=== PATIENT | female | born 1975 | race Caucasian/White ===

== ENCOUNTER 2017-02-26 06:45 | Inpatient (IN) ==
[2017-02-21 15:43] LABS: Basophils % 0.6 % (0.0-0.8); Eosinophils # 0.1 10*3/uL (0.0-0.87); Eosinophils % 1.1 % (0.00-10.9); Hematocrit 40.3 VOL% (35.7-47.0); Hemoglobin 13.8 GM/DL (12.0-16.0); Immature Granulocytes % 0.1 %; Immature Granulocytes Absolute 0.01 #; Lymphocytes % 42.1 % (21.3-54.2); Mean Corpuscular HGB Conc 34.2 GM/DL (32-36); Mean Corpuscular Hemoglobin 31 PG (27-34); Mean Corpuscular Volume 89.8 FL (87-102); Mean Platelet Volume 12.2 FL (9.6-12.0); Monocytes # 0.9 10*3/uL (0.11-0.8); Monocytes % 12.2 % (1.7-12.7); Neutrophils # 3.1 10*3/uL (1.4-7.4); Neutrophils % 43.9 % (38.7-73.9); Platelet Count 258 T/CUMM (130-400); Red Blood Count 4.49 MC/CUMM (3.8-5.5); Red Cell Distribution Width 12.9 % (9.3-17.3); White Blood Count 7.1 T/CUMM (4-12)
--- NOTE | 2017-02-21 15:44 | XRay Report ---
Exam: XR chest 2V Indication: Preop Comparison study: None Findings: The heart, mediastinum, and bony structures are within normal limits. There is no focal consolidation, pneumothorax or pleural effusion identified. Impression: No acute cardiopulmonary process. PROCEDURE INTERPRETED AT [facility] DEPARTMENT OF RADIOLOGY Final Report Signed by: Sanjay Delgado
[2017-02-21 16:06] LABS: Apearance,Urine Slightly Hazy (Clear); Bilirubin,Urine Negative (Negative); Blood, Urine Negative (Negative); Glucose,Urine (UA) Negative (Negative); Ketones,Urine Negative (Negative); Nitrite,Urine Negative (Negative); Protein,Urine Negative; Urine Color Yellow (Yellow); Urine Specific Gravity 1.006 (1.001-1.035); Urine Urobilinogen < 2.0 EU/DL (0.2-1.0); WBC,Urine <1 /HPF (0-6)
[2017-02-21 16:10] LABS: Alanine Aminotransferase 21 U/L (13-56); Albumin 4.3 G/DL (3.4-5.0); Alkaline Phosphatase 74 U/L (45-117); Aspartate Amino Transferase 14 U/L (0-37); Bilirubin,Total < 0.39 MG/DL (0.2-1.0); Blood Urea Nitrogen 9 MG/DL (7-18); Calcium 9.3 MG/DL (8.5-10.1); Cholesterol 160 MG/DL (50-200); Glucose 82 MG/DL (74-106); HDL Cholesterol 59 MG/DL (40-60); Osmolality,Calculated 278.3 MOS/KG (273-304); Potassium 3.8 MMOL/L (3.5-5.1); Risk Ratio 2.71; Sodium 141 MMOL/L (136-145); Triglycerides 113 MG/DL (2-150); VLDL CHOLESTEROL 22.6 MG/DL
[2017-02-21 23:15] LABS: HIV Antigen/Antibody Result Nonreactive (Nonreactive)
--- NOTE | 2017-02-22 04:47 | EKG Report ---
Stationary ECG Study [facility] Test Date: 02/21/2017 3:18:11 PM Pat Name: LOGAN PHILIPPE Department: Room: Gender: F Relationship Manager: JULIET BARON : 1975 Requested by: Lynne Baron Order Number: [id number] Reading MD: PIEDAD DUONG Intervals Hardesty Rate: 63 P: 58 VT: 139 QRS: 88 QRSD: 80 T: 73 QT: 387 QTc: 394 Interpretive Statements SINUS RHYTHM INTERPRETATION BASED ON A DEFAULT AGE OF 40 YEARS Electronically Signed On 02-21-17 17:00:11 CDT by PIEDAD DUONG [email or web address]
[~2017-02-26 06:45] MED LIST: AMPICILLIN/SULBACTAM 3,000 MG VIAL ONE; AMPICILLIN/SULBACTAM 3,000 MG in SODIUM CHLORIDE 0.9% 100 ML IV ONE; SODIUM CHLORIDE 0.9% 100 ML IV ONE
[2017-02-26] MEDS ORDERED: LACTATED RINGERS 1,000 ML IV SCH (07:30)
[2017-02-26] MEDS ORDERED: LORazepam 1 MG TABLET PO ONE (07:33)
[2017-02-26] MEDS ORDERED: FAMOTIDINE 20 MG TABLET PO ONE (07:33)
[2017-02-26] MEDS ORDERED: MICROFIBRILLAR COLLAGEN POWDER 1 GM CAN TOP ONE (09:00)
--- NOTE | 2017-02-26 09:18 | History and Physical Update ---
History and Physical Update - History and Physical H&P was reviewed, the patient examined and there: are no changes in the patients condition since last H&P was completed.
[2017-02-26 11:21] LABS: Apearance,Urine CLEAR (Clear); Bilirubin,Urine Negative (Negative); Blood, Urine Negative (Negative); Glucose,Urine (UA) Negative (Negative); Ketones,Urine Negative (Negative); Nitrite,Urine Negative (Negative); Protein,Urine Negative; RBC,Urine <1 /HPF (0-4); Urine Color Straw (Yellow); Urine Specific Gravity 1.005 (1.001-1.035); Urine Urobilinogen < 2.0 EU/DL (0.2-1.0); WBC,Urine <1 /HPF (0-6)
--- NOTE | 2017-02-26 11:22 | Operative Note ---
Date of procedure: 02/26/17 Procedure: Preoperative diagnosis: [] Dysfunctional uterine bleeding, uterine fibroids Postoperative diagnosis: Same Anesthesia: General. endotracheal anesthesia Estimated blood loss: [] Less than 150 cc Surgeon: Dr. Wylie Findings: [] 8 cm fundal fibroid, ovarian cyst Procedure: TAD and BSO The risks benefits and indications and alternatives the procedure were reviewed with the patient and informed consent was obtained. The patient was taken to the operating room with IV running and a Bueno catheter in place. Patient was placed in supine position, given general anesthesia, prepped and draped in the usual sterile fashion. An abdominal incision was made approximately 2 cm above the symphysis pubis and extended sharply to the rectus fascia. The fascia was then excised bilaterally with the curved Linares scissors. And the muscles of the anterior abdominal wall were in the midline by sharp and blunt dissection. Peritoneum was grasped between 2 pickups, elevated and entered sharply with the scalpel. The pelvis was examined with the findings noted above. A abdominal retractor was placed into the incision and the bowel packed away with moist laparotomy sponges. [] A tenaculum was placed on the cornea and used for retraction. The round ligaments on both sides were clamped, transected and suture ligated with 0 Vicryl the anterior leaf of the broad ligament was incised along the bladder was reflection to the midline from both sides. The bladder was then gently dissected off the lower uterine segment and the cervix with a sponge stick. The infundibulopelvic ligaments on both sides were then doubly clamped, transected and suture ligated with 0 Vicryl. Hemostasis was visualized. The uterine arteries were skeletonized bilaterally, clamped with Jenny clamps, transected and suture ligated with 0 Vicryl and, hemostasis was assured. The uterosacral ligament were clamped on both sides, transected, and suture ligated in a similar fashion the cervix and uterus were amputated with cautery. The vaginal cuff angles were closed with [id number] stitches of 0 Vicryl and were transfixed to the ipsilateral cardinal and uterosacral ligaments. The remainder of the vaginal cuff was closed with a series of interrupted 0 Vicryl [id number] sutures hemostasis was assured. The ureters were identified bilaterally were well within normal limits the pelvis was irrigated copiously with warm normal saline. All laparotomy sponges and instruments were removed from the abdomen. The fascia was closed with running 0 Vicryl, and hemostasis was assured the skin was closed with lenora. Sponges, lap, needle and instrument counts were correct -2. The patient was extubated in the operating room was taken to the PAC unit, awake and in stable condition.. Surgeon / Physician: Lynne Wylie Results - Labs CBC & BMP: 02/21/17 15:34 02/21/17 15:34 Discharge Plan - Discharge Medications No Action Sertraline [Zoloft] 50 mg PO DAILY Norethindrone [Kary-Be] 0.35 mg PO DAILY Folic Acid/Multivit-Min/Lutein [Centrum Silver Chew Tab] 1 tablet PO DAILY Chlorpheniramine/Phenylephrine [Ed-A-Hist 4 mg-10 mg Tablet] 1 each PO BEDTIME PRN PRN Reason: Sinus Symptoms - Follow Up or Referral - Forms/Instructions
[2017-02-26] MEDS ORDERED: BISACODYL 10 MG SUPP RECTAL PRN (11:23)
[2017-02-26] MEDS ORDERED: IBUPROFEN 800 MG TABLET PO PRN (11:23)
[2017-02-26] MEDS ORDERED: BENZOCAINE/MENTHOL LOZENGE 18/BOX PO PRN (11:23)
[2017-02-26] MEDS ORDERED: ACETAMINOPHEN 325 MG TABLET PO PRN (11:23)
[2017-02-26] MEDS ORDERED: PROPOFOL 200 MG/20 ML VIAL IV ONE (11:54)
[2017-02-26] MEDS ORDERED: MIDAZOLAM 2 MG/2 ML VIAL ONE (11:55)
[2017-02-26] MEDS ORDERED: SEVOFLURANE 1 UNIT/15 MINUTE INH ONE (11:55)
[2017-02-26] MEDS ORDERED: ePHEDrine 50 MG/ML AMP ONE (11:56)
[2017-02-26] MEDS ORDERED: NEOSTIGMINE 10 MG/10 ML VIAL ONE (11:56)
[2017-02-26] MEDS ORDERED: ACETAMINOPHEN 1,000 MG/100 ML VIAL IV ONE (11:56)
[2017-02-26] MEDS ORDERED: GLYCOPYRROLATE 0.4 MG/2 ML VIAL ONE (11:56)
[2017-02-26] MEDS ORDERED: KETOROLAC 30 MG/1 ML VIAL ONE (11:56)
[2017-02-26] MEDS ORDERED: ONDANSETRON 4 MG/2 ML VIAL ONE (11:56)
[2017-02-26] MEDS ORDERED: ROCURONIUM 100 MG/10 ML VIAL IV ONE (11:56)
--- NOTE | 2017-02-26 12:00 | Anesthesia Post-Op ---
Anesthesia Post OP - Post Ansesthetic Evaluation Patient seen in post op: Yes Resp: within normal limits CV: within normal limits Mental: within normal limits Temp: within normal limits [id number]-[id number]-[id number]: within normal limits Nausea and Vomiting: within normal limits Pain: within normal limits
[2017-02-26] MEDS ORDERED: MEPERIDINE 25 MG/1 ML VIAL IV PRN (13:49)
[2017-02-26] MEDS: ONDANSETRON 4 MG/2 ML VIAL IV PRN (15:14)
[2017-02-26] MEDS: LACTATED RINGERS 1,000 ML IV SCH (17:49)
[2017-02-27] MEDS: ONDANSETRON 4 MG/2 ML VIAL IV PRN (01:00)
[2017-02-27] MEDS: LACTATED RINGERS 1,000 ML IV SCH ×2 (02:45→06:43)
[2017-02-27 06:33] LABS: Basophils % 0.2 % (0.0-0.8); Eosinophils % 0.3 % (0.00-10.9); Hematocrit 34.6 VOL% (35.7-47.0); Hemoglobin 11.9 GM/DL (12.0-16.0); Immature Granulocytes % 0.3 %; Immature Granulocytes Absolute 0.03 #; Lymphocytes # 2.1 10*3/uL (1.4-4.0); Lymphocytes % 19.3 % (21.3-54.2); Mean Corpuscular HGB Conc 34.4 GM/DL (32-36); Mean Corpuscular Hemoglobin 31 PG (27-34); Mean Corpuscular Volume 89.2 FL (87-102); Mean Platelet Volume 12.3 FL (9.6-12.0); Monocytes # 1.3 10*3/uL (0.11-0.8); Monocytes % 12.6 % (1.7-12.7); Neutrophils # 7.2 10*3/uL (1.4-7.4); Neutrophils % 67.3 % (38.7-73.9); Platelet Count 188 T/CUMM (130-400); Red Blood Count 3.88 MC/CUMM (3.8-5.5); Red Cell Distribution Width 13.2 % (9.3-17.3); White Blood Count 10.6 T/CUMM (4-12)
[2017-02-27] MEDS: DOCUSATE SODIUM 100 MG CAPSULE PO PRN (09:40)
[2017-02-27] MEDS: MAGNESIUM HYDROXIDE SUSP 30 ML UDCUP PO PRN (09:40)
--- NOTE | 2017-02-27 11:24 | Pathology Report from [facility] ---
[facility] ACCESSION # : [id number] PATIENT NAME : Khai Philippe ORDERING DR : CAMILO BARON MD CLINICAL HX: Fibroids - Irregular bleeding - Elevated uterine size POST-OP DX: Same SPECIMEN INFO: Uterus with cervix, bilateral tubes and ovaries GROSS DESCRIPTION: Received in formalin labeled KHAI PHILIPPE is a 281 gm uterus with cervix measuring 10.8 x 7.8 x 7.5 cm. The serosa is red fang and free of adhesions. The cervix measures 2.9 cm. The cervical os is markedly stenotic. The endocervical canal is patent. Sectioning reveals a large well demarcated intramural mass measuring 7.0 x 6.8 cm. The right ovary is yellow pink and measures 3.4 x 1.5 cm. Sectioning reveals a 1.0 cm clear filled cyst. The adjacent fallopian tube is fimbriated and measures 5.5 x 0.4 cm. The left ovary is yellow pink measuring 3.2 x 2.8 cm. Sectioning reveals a few hemorrhagic clear fluid filled cysts measuring up to 1.2 cm. The adjacent fallopian tube is fimbriated and measures 5.0 x 0.5 cm. Sections submitted A-Cervix, B&C- Endomyometrium, D-Posterior uterine serosa, E&F-Intramural mass, G-RT ovary & tube, H-LT ovary & tube. DIAGNOSIS FOR KHAI PHILIPPE: UTERUS, TUBES, & OVARIES, HYSTERECTOMY W/ BILATERAL SALPINGO-OOPHORECTOMY: Cervical canal stenosis with chronic cervicitis and endocervicitis. Large uterine leiomyoma. Basal type weakly proliferative endometrium. Simple follicular cysts, both ovaries. Remote luteal cyst, left ovary. Unremarkable fallopian tubes. COLLECTED DATE: 02/26/2017 [facility] REPORT DATE: 02/27/2017 ELECTRONICALLY SIGNED BY: Kana Bonilla M.D. 02/27/2017 - 9:53:40 [facility]
[2017-02-28] MEDS: MAGNESIUM HYDROXIDE SUSP 30 ML UDCUP PO PRN (09:48)
[2017-02-28] MEDS: DOCUSATE SODIUM 100 MG CAPSULE PO PRN (09:49)
[2017-02-28 11:52] VITALS: BP 116/74
--- NOTE | 2017-02-28 13:45 | Discharge Summary ---
Hospital Course - Hospital Course Hospital Course: 2 days postop Status post TAD/BSO secondary to large uterine fibroids, dysfunctional uterine bleeding, and pelvic pain. Final path is consistent with leiomyomas with no evidence of any pathology. Patient is only complains of gas. No shortness of breath chest pain or palpitations. This patient will be discharged with Motrin and also Percocet. At this point time will not add any hormonal therapy. Will wait for 2 weeks before she returns her office. Discharge Plan - Discharge Data Condition at Discharge: Stable Discharge Diet: advance to your usual diet Activity: increase activity as tolerated, no lifting Contact your physician if you experience:: fever over 101, Bleeding - Discharge Medications New Ibuprofen Tab [Motrin Tab] 800 mg PO Q8H PRN #30 tablet PRN Reason: Pain Mild To Moderate (1-7) HYDROcodone/ACETAMIN 5-325 [Topaz 5-325] 1 tablet PO Q4H PRN #30 tablet PRN Reason: Pain Moderate (4-7) No Action Sertraline [Zoloft] 50 mg PO DAILY Norethindrone [Kary-Be] 0.35 mg PO DAILY Folic Acid/Multivit-Min/Lutein [Centrum Silver Chew Tab] 1 tablet PO DAILY Chlorpheniramine/Phenylephrine [Ed-A-Hist 4 mg-10 mg Tablet] 1 each PO BEDTIME PRN PRN Reason: Sinus Symptoms - Follow Up or Referral - Forms/Instructions Exam - Constitutional Vitals: Period Temp Pulse Resp BP Sys/Brito Pulse Ox Last 24 Hr 96.7 F-98.8 F 58-83 16-20 97-125/60-76 97-99 DS: Provider Date of admission: 02/26/17 06:45 Primary care physician: Lynne Wylie MD Attending physician on admission: Lynne Wylie MD Discharging clinician: Lynne Wylie MD
== END 2017-02-28 14:40 | disposition home or self-care (01) | DRG 743 ==
LOC: N.SDSINP 06:45 → N.OB 12:35
PROVIDERS: ADMIT Obstetrics & Gynecology; ATTEND Obstetrics & Gynecology